=== PATIENT | female | born 1965 | race Caucasian/White ===

== ENCOUNTER 2017-06-21 11:57 | Emergency (ER) | payer MEDICARE, OTHER ==
[2017-06-21 12:08] VITALS: BP 144/94
--- NOTE | 2017-06-21 13:32 | RAD ---
Indication: Left leg edema. Duplex Doppler sonography of the deep venous system of the left lower extremity deep venous system was performed. Bilaterally the common femoral veins appear patent and compressible. Left proximal greater saphenous vein, proximal deep femoral vein, femoral vein, popliteal vein, posterior tibial veins and peroneal veins appear patent and compressible. IMPRESSION: NO EVIDENCE OF DEEP VENOUS THROMBOSIS IS IDENTIFIED.
--- NOTE | 2017-06-21 15:08 | UC ---
Luis Huddleston Angela, scribed for Steven Silver MD on 06/21/17 at 1213 . Lower Extremity/Ankle HPI - HPI Summary HPI Summary: This pt is a 52 y/o female presenting to [facility] c/o increased left leg swelling for the last couple of weeks. 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 She went to see Dr. Schroeder, fire range technician, for a follow up today. Dr. Schroeder noticed there is increased swelling and pain on the left calf and left lower extremity, therefore she sent the pt to Urgent Care to rule out DVT. Denies tobacco, alcohol, drug use. - History of Current Complaint Chief Complaint: UCLowerExtremity Stated Complaint: CRAMPS Time Seen by Provider: 06/21/17 12:10 Hx Obtained From: Patient Onset/Duration: Lasting Weeks, Still Present Severity Currently: Severe Pain Intensity: 8 Pain Scale Used: 0-10 Numeric Aggravating Factor(s): Nothing Alleviating Factor(s): Nothing Able to Bear Weight: Yes - Allergies/Home Medications Allergies/Adverse Reactions: Allergies Allergy/AdvReac Type Severity Reaction Status Date / Time No Known Allergies Allergy Verified 06/21/17 12:08 Home Medications: Home Medications Morphine Sulfate 15 mg PO Q8H PRN 06/21/17 [History Confirmed 06/21/17] PMH/Surg Hx/FS Hx/Imm Hx Other Endocrine History: DENIES: diabetes Other Cardiovascular History: DENIES: HTN Other Cancer History: melanoma left leg - Surgical History Surgical History: Yes Surgery Procedure, Year, and Place: EXC GANGLION CYST RIGHT WRIST [facility]; NECK SURGERY 01/2016-BULGING DISC. 1995 [facility] [facility] [place] [facility] [place] [facility] [place]. 2008 [place] [facility] [place] [facility] [place] 2013 ORIF LEFT ANKLE [facility]. 2014 DORSAL COLUMN STIMULATOR AND 03/16/15 ENTIRE GENERATOR, LEADS AND ANCHORS COMPLETELY REMOVED PER DR SCHROEDER'S OP REPORT[place] [facility] [place] LEFT GROIN LYMPHNODES, MELANOMA EXC [facility] - Family History Family History: No FHx of CVA. - Social History Alcohol Use: Occasionally Alcohol Amount: 4-5 PER WEEK Substance Use Type: None Substance Use Comment - Amount & Last Used: morphine Smoking Status (MU): Never Smoked Tobacco Have You Smoked in the Last Year: No - Immunization History Most Recent Influenza Vaccination: UNSURE & STATES DR TOMLINSON SAID SHE SHOULD NOT GET THIS YEAR. Most Recent Tetanus Shot: Unknown Review of Systems Constitutional: Negative Skin: Negative Eyes: Negative ENT: Negative Respiratory: Negative Cardiovascular: Negative Gastrointestinal: Negative Genitourinary: Negative Motor: Negative Neurovascular: Negative Musculoskeletal: Edema - left leg, Other: - left leg pain Neurological: Negative Psychological: Negative All Other Systems Reviewed And Are Negative: Yes Physical Exam - Summary Physical Exam Summary: VITAL SIGNS: Reviewed. GENERAL: Patient is a well-developed and nourished female who is lying comfortable in the stretcher. Patient is not in any acute respiratory distress. HEAD AND FACE: Normocephalic EYES: PERRLA, EOMI x 2. EARS: Hearing grossly intact. MOUTH: Oropharynx within normal limits. NECK: Supple, trachea is midline, no adenopathy, no JVD, no carotid bruit. CHEST: Symmetric, no tenderness at palpation LUNGS: Clear to auscultation bilaterally. No wheezing or crackles. CVS: Regular rate and rhythm, S1 and S2 present, no murmurs or gallops appreciated. ABDOMEN: Soft, non-tender. Bowel sounds are normal. No abdominal abnormal pulsations. EXTREMITIES: Full ROM in all major joints, no cyanosis or clubbing. LLE: some tenderness on the left side of the left calf. Good pulses. Good capillary refill. NEURO: Alert and oriented x 3. No acute neurological deficits. Speech is normal and follows commands. SKIN: Dry and warm Triage Information Reviewed: Yes Vital Signs: Initial Vital Signs Temp 97.7 F 06/21/17 12:03 Pulse 80 06/21/17 12:03 Resp 16 06/21/17 12:03 BP 144/94 06/21/17 12:03 Pulse Ox 99 06/21/17 12:03 Vital Signs Reviewed: Yes Diagnostics - Laboratory Diagnostic Studies Completed/Ordered: Left lower extremity US IMPRESSION: No evidence of deep venous thrombosis is identified. Dr. Silver has reviewed this radiology report. Re-Evaluation - Re-Evaluation First Eval Re-Evaluation Time: 13:55 Comment: I reviewed the US results with the pt. Lower Extremity Course/Dx - Course Course Of Treatment: This pt is a 52 y/o female presenting to [facility] c/o increased left leg swelling for the last couple of weeks. 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 She went to see Dr. Schroeder, fire range technician, for a follow up today. Dr. Schroeder noticed there is increased swelling and pain on the left calf and left lower extremity, therefore she sent the pt to Urgent Care to rule out DVT. Denies tobacco, alcohol, drug use. Left lower extremity ultrasound shows no evidence of deep venous thrombosis is identified. Ultrasound is negative for DVT. I discussed all the findings and test results with the patient. Pt was instructed to return to the urgent care or go to ER immediately if any of the symptoms return or worsens. Plan of care was discussed with the patient and pt understands and agrees. All questions were answered to patient satisfaction. There were no further complaints or concerns. Pt will be discharged to home with follow up from PCP. Pt is hemodynamically stable, alert and oriented x3. The patient was found to have increased blood pressure in UC. The patient will follow up with PCP for better control of BP. - Differential Dx/Diagnosis Provider Diagnoses: Left leg pain Discharge - Sign-Out/Discharge Documenting (check all that apply): Discharge - Discharge Plan Condition: Stable Disposition: HOME Patient Education Materials: Leg Pain (ED) Referrals: Kathleen Alarcon MD [Primary Care Provider] - Additional Instructions: FOLLOW UP WITH YOUR PRIMARY CARE PROVIDER WITHIN ONE WEEK FOR HIGH BLOOD PRESSURE NOTED TODAY. RETURN TO URGENT CARE OR THE ED FOR ANY WORSENING OR NEW SYMPTOMS. The documentation as recorded by the Luis fuentes Angela accurately reflects the service I personally performed and the decisions made by me, Steven Silver MD.
== END 2017-06-21 14:00 | disposition home or self-care (01) ==
LOC: UCEAST 11:57
DX: M79.662 Pain in left lower leg (principal)
CPT/HCPCS: 99211; G0463